=== PATIENT | male | born 1995 | race Caucasian/White ===

== ENCOUNTER 2022-07-30 10:19 | Emergency (ER) | payer OTHER, SELFPAY ==
--- NOTE | 2022-07-30 10:22 | ED_ITS ---
HPI - Overdose General Chief Complaint: Overdose Stated Complaint: OD, NARCAN GIVEN Source: patient and EMS Mode of arrival: EMS Limitations: other (rude to staff on arrival) History of Present Illness HPI Narrative: 27 yo male was drinking and doing cocaine at a green party last night. friend's noted he was much more sleepy no trauma reported tried to wake him up with water in the bathtub no response - bystander gave 4mg narcan and EMS gave 4mg narcan (noted agonal breathing) patient now awake and upset. No prior opiate abuse. patient was rude to staff on arrival MD complaint: accidental overdose Onset (ago): day(s) (started to green party last night) Timing confirmed by: other (self) Context: Accidental Overdose: wanted to get high Associated symptoms: other (symptoms of overdose, sleepiness, agonal breathing) Treatments Prior to Arrival: narcan (8mg IN ) Related Data Allergies Allergy/AdvReac Type Severity Reaction Status Date / Time No Known Allergies Allergy Verified 07/30/22 10:43 Review of Systems Review of Systems: ROS unable to be obtained due to agitation but tells me he is not suicidal is going home as soon as possible, refuses evaluation [facility] Past Medical History Attestation statement: The following information was validated with the patient. Medical History Alcohol abuse Cocaine abuse Social History Social History (Updated 07/30/22 @ 11:00 by Patsy Solis DO) Alcohol intake: current Patient Tobacco Use Status: Current someday Tobacco user Substance Use Type: Crack/Cocaine Advance Directives: No Advance Directives Information Provided: Yes Physical Exam Vital Signs: Vital Signs: Last Vital Signs Temp 97.6 F 07/30/22 10:35 Pulse 83 07/30/22 10:35 Resp 18 07/30/22 11:55 BP 137/86 07/30/22 10:35 Pulse Ox 99 07/30/22 10:35 O2 Del Method 07/30/22 10:35 BMI result Body Mass Index 0.0 Appearance: Alert. Oriented X3. No acute distress. Rude, hitting the wall at times, won't get off his cell phone Eyes: Pupils equal, round and reactive to light. ENT: Pharynx normal. Neck: Normal inspection. Neck supple. CVS: Normal heart rate and rhythm. Pulses normal. Respiratory: No respiratory distress. Breath sounds normal. Abdomen: Soft and non-tender. Skin: Skin warm and dry. Normal skin color. Extremities: No lower extremity edema. Neuro: Oriented X 3. No motor deficit. No sensory deficit. Course Course Course Narrative: obs til noon no need for repeat narcan stable for DC MDM - Overdose MDM Narrative Medical decision making narrative: 27 yo male with ETOH abuse, using cocaine last night likely either used opiates or commonly laced with fentanyl patient is aware and told not to use the cocaine anymore. he also told his friend on the phone not to use the cocaine. he denies SI. He does not want detox or SUDE evaluation. Agrees to 90 min in ED. He is not very pleasant to deal with. Discharge Plan Discharge Clinical Impression: Alcohol abuse Opiate overdose Qualifiers: Encounter type: initial encounter Injury intent: accidental or unintentional Qu alified Code(s): T40.601A - Poisoning by unspecified narcotics, accidental (unintentional), initial encounter Patient Disposition: Home, Self-Care Instructions: Abuse of Alcohol (ED), Adult Overdose (ED) Additional Instructions: return to ED for any worsening symptoms or concerns Interventions: ED Discharge Assessment Last Done: 07/30/22 12:22 Discharge Date/Time: 07/30/22 12:27
[2022-07-30 10:35] VITALS: BP 136/80; BP 137/86; PULSE 108; PULSE 83; RESP 16; TEMP 36.4; O2SAT 99
--- OUTSIDE RECORDS SUMMARY | 2022-07-30 10:55 | XMS_ITS | Continuity of Care Document ---
:1995 Author Organization [facility] Address Unavailable , Care Team Providers Name Role Phone Not on Staff, PCP Primary Care Physician Unavailable Encounter [facility] Date(s): 08/23/21 - 09/22/21 [facility] Attending Physician: Crhistianne Poole Admitting Physician: Christianne Poole Referring Physician: Christianne Poole Allergies, Adverse Reactions, Alerts Substance Reaction Severity Status NKA Active Immunizations Given and Recorded Vaccine Date Status Refusal Reason tetanus/diphtheria/pertussis, acel(Tdap) 12/20/18 Given tetanus/diphtheria/pertussis, acel(Tdap) 07/05/12 Given Human Papillomavirus Vaccine 07/05/12 Given Varicella Virus Vaccine 07/05/12 Given Varicella Virus Vaccine 01/30/08 Given Meningococcal Conjugate Vaccine 07/05/12 Given Meningococcal Conjugate Vaccine 01/30/08 Given influenza virus vaccine, inactivated 07/05/12 Given Tet/Diphth/Acel, Pertussis (oldterm) 01/30/08 Given Influenza Inactive (IM) (oldterm) 11/11/04 Given Influenza Inactive (IM) (oldterm) 09/25/01 Given Influenza Inactive (IM) (oldterm) 07/18/01 Given Influenza Inactive (IM) (oldterm)1 07/18/01 Given Measles/Mumps/Rubella Virus Vaccine2 06/04/00 Given Measles/Mumps/Rubella Virus Vaccine3 08/04/96 Given Poliovirus Vaccine, Inactivated4 06/04/00 Given Poliovirus Vaccine, Inactivated5 03/12/96 Given Poliovirus Vaccine, Inactivated6 02/01/96 Given Poliovirus Vaccine, Inactivated7 95 Given Diphth/Pertussis, Whl Cell/Tet(oldterm)8 06/04/00 Given Diphth/Pertussis, Whl Cell/Tet(oldterm)9 08/04/96 Given Diphth/Pertussis, Whl Cell/Tet(oldterm)10 03/12/96 Given Diphth/Pertussis, Whl Cell/Tet(oldterm)11 02/01/96 Given Diphth/Pertussis, Whl Cell/Tet(oldterm)12 95 Given Haemophilus B Conj Vaccine (oldterm)13 08/04/96 Given Haemophilus B Conj Vaccine (oldterm)14 03/12/96 Given Haemophilus B Conj Vaccine (oldterm)15 02/01/96 Given Haemophilus B Conj Vaccine (oldterm)16 95 Given Hepatitis B Vaccine (old term)17 03/12/96 Given Hepatitis B Vaccine (old term)18 95 Given Hepatitis B Vaccine (old term)19 95 Given 1Admin Note: hx varicella '972Admin Note: SLQ1Phwya Note: TFI6Omacv Note: IPV5 Admin Note: NXB1Cxfid Note: AVQ0Syvmu Note: RSS5Coyjp Note: ECT2Gljdw Note: DTP 10Admin Note: OXZ84Kgrst Note: EPH76Ssqjk Note: JOH19Lufhx Note: EPN87Jzmqw Note: DOC44Yioqd Note: RZC80Nqlwn Note: LGZ92Ssgya Note: HEP J69Lrgqs Note: HEP B37Xwqsv Note: HEP B Medications acetaminophen-codeine 300 mg-15 mg oral tablet 1 tablet, By Mouth, Every 6 hours, No operating bikes or cars while taking pain medication, # 6 capsule, 0 Refills, Maintenance, Tablet Start Date: 03/18/10 Status: Orderedalbuterol 90 mcg/inh inhalation aerosol with adapter 2, puffs, Inhalation, Every 4 hours, Scheduled / PRN, 0, 0, 06/21/06 16:59:31, as needed for wheezing, Print SHRUTHI Number, 51 Start Date: 06/21/06 Status: OrderedCrutches See Instructions, # 1 each, Maintenance, instruct in use, 05/05/15 19:27:39, Compound Start Date: 05/05/15 Status: Orderedfluoride 1 mg oral tablet, chewable See Instructions, 100, 5, 5, 01/30/08 17:20:34, one tablet by mouth daily, Print SHRUTHI Number, Constant Indicator Start Date: 01/30/08 Status: Orderedibuprofen 600 mg oral tablet 1 tablet = 600 mg, By Mouth, Every 6 hours, PRN Pain , Mild, # 60 tablet, 0 Refills, Maintenance, 07/06/15 1:58:14, Tablet Start Date: 07/05/15 Status: Ordered Problem List Condition Effective Dates Status Health Status Informant Asthma - mild, intermittent(Confirmed) Active Social History Social History Type Response Sex Male
--- NOTE | 2022-07-30 11:45 | PC.NURSE ---
called pharmacy for missing med
--- NOTE | 2022-07-30 11:50 | PC.NURSE ---
pt continues to refuse to answer questions, was punching and kicking wall, security was called to settle the patient, will continue to monitor
[2022-07-30 11:55] VITALS: RESP 18
[2022-07-30] MEDS: Naloxone HCl Nasal TAKE HOME 4 MG SPRAY NOSTRILALT (12:04)
--- NOTE | 2022-07-30 12:28 | PC.NURSE ---
pt refused vitals, agreed to take the nasal narcan upon the discharged and did apologize to staff for his earlier behavior
== END 2022-07-30 12:27 | disposition home or self-care (01) ==
PROVIDERS: Emergency Provider Emergency Medicine
DX: T40.5X1A Poisoning by cocaine, accidental (unintentional), initial encounter (principal); Y92.9 Unspecified place or not applicable; F14.10 Cocaine abuse, uncomplicated; F10.10 Alcohol abuse, uncomplicated; Y90.9 Presence of alcohol in blood, level not specified; Z79.899 Other long term (current) drug therapy
CPT/HCPCS: 99282; 99285